=== PATIENT | female | born 1975 | race Caucasian/White ===

== ENCOUNTER → 2016-07-30 | Outpatient (REF) | payer OTHER | LOC: M LAB REF 09:10 | PROVIDERS: ATTEND Physician Assistant | DX: J02.9 Acute pharyngitis, unspecified (principal) ==

== ENCOUNTER → 2018-10-20 | Outpatient (CLI) | payer OTHER ==
[2018-10-20 15:56] LABS: BASO # 0.1 10^3/uL (0.0-0.2); BASO % 0.8 % (0.0-1.0); EOS # 0.1 10^3/uL (0.0-0.50); EOS % 1.6 % (0.0-3.0); HEMOGLOBIN 14.1 g/dl (12.0-15.5); LYMPH # 2.9 10^3/uL (1.5-4.5); LYMPH % 46.6 % (24.0-44.0); MEAN CORPUSCULAR HEMOGLOBIN 30.9 pg (27.0-33.0); MEAN CORPUSCULAR HGB CONC 32.8 g/dl (32.0-36.5); MEAN CORPUSCULAR VOLUME 94.3 fl (80.0-96.0); MONO # 0.5 10^3/uL (0.0-0.8); MONO % 8.1 % (0.0-5.0); NEUTROPHILS # 2.6 10^3/uL (1.8-7.7); NEUTROPHILS % 42.7 % (36.0-66.0); PLATELET COUNT, AUTOMATED 264 10^3/uL (150-450); RED BLOOD COUNT 4.56 10^6/uL (4.00-5.40); WHITE BLOOD COUNT 6.2 10^3/uL (4.0-10.0)
[2018-10-20 16:00] LABS: ALBUMIN 3.8 GM/DL (3.2-5.2); ALT/SGPT 20 U/L (12-78); BILIRUBIN,TOTAL 0.4 MG/DL (0.2-1.0); BLOOD UREA NITROGEN 10 MG/DL (7-18); CALCIUM LEVEL 8.9 MG/DL (8.5-10.1); CARBON DIOXIDE LEVEL 29 MEQ/L (21-32); CHLORIDE LEVEL 103 MEQ/L (98-107); CHOLESTEROL LEVEL 238 MG/DL (<200); CREATININE FOR GFR 0.82 MG/DL (0.55-1.30); GLOMERULAR FILTRATION RATE > 60.0 (>58); GLUCOSE, FASTING 77 MG/DL (70-100); HDL CHOLESTEROL 73 MG/DL (>40); LDL CHOLESTEROL 135 MG/DL (<100); NON-HDL-C 165 MG/DL; POTASSIUM SERUM 3.9 MEQ/L (3.5-5.1); SODIUM LEVEL 138 MEQ/L (136-145); TOTAL PROTEIN 7.3 GM/DL (6.4-8.2); TRIGLYCERIDES LEVEL 150 MG/DL (<150)
[2018-10-20 16:03] LABS: TOTAL 25(OH) VITAMIN D 30.7 NG/ML (30.0-100.0)
== END ==
LOC: M WUC 08:26
PROVIDERS: ATTEND Family Medicine
DX: Z00.00 Encounter for general adult medical examination without abnormal findings (principal); K59.00 Constipation, unspecified; E55.9 Vitamin D deficiency, unspecified

== ENCOUNTER → 2019-04-09 | Outpatient (CLI) | payer OTHER ==
[2019-04-09 09:40] LABS: BASO % 0.5 % (0.0-1.0); EOS # 0.1 10^3/uL (0.0-0.5); EOS % 1.1 % (0.0-3.0); HEMATOCRIT 40.8 % (36.0-47.0); HEMOGLOBIN 13.7 g/dl (12.0-15.5); LYMPH # 2.6 10^3/uL (1.5-5.0); MEAN CORPUSCULAR HEMOGLOBIN 31.4 pg (27.0-33.0); MEAN CORPUSCULAR HGB CONC 33.6 g/dl (32.0-36.5); MEAN CORPUSCULAR VOLUME 93.6 fl (80.0-96.0); MONO # 0.7 10^3/uL (0.0-0.8); MONO % 8.2 % (0.0-5.0); NEUTROPHILS # 5.3 10^3/uL (1.5-8.5); PLATELET COUNT, AUTOMATED 253 10^3/uL (150-450); RED BLOOD COUNT 4.36 10^6/uL (4.00-5.40); WHITE BLOOD COUNT 8.8 10^3/uL (4.0-10.0)
[2019-04-09 10:04] LABS: ALBUMIN 3.8 GM/DL (3.2-5.2); ALT/SGPT 19 U/L (12-78); BILIRUBIN,TOTAL 0.4 MG/DL (0.2-1.0); BLOOD UREA NITROGEN 9 MG/DL (7-18); CALCIUM LEVEL 8.8 MG/DL (8.5-10.1); CARBON DIOXIDE LEVEL 28 MEQ/L (21-32); CHLORIDE LEVEL 107 MEQ/L (98-107); CHOLESTEROL LEVEL 224 MG/DL (<200); CHOLESTEROL RISK RATIO 2.986 (<5); CREATININE FOR GFR 0.74 MG/DL (0.55-1.30); FREE T4 0.98 NG/DL (0.76-1.46); GLOMERULAR FILTRATION RATE > 60.0 (>58); GLUCOSE, FASTING 86 MG/DL (70-100); HDL CHOLESTEROL 75 MG/DL (>40); LDL CHOLESTEROL 129 MG/DL (<100); MAGNESIUM LEVEL 2.3 MG/DL (1.8-2.4); NON-HDL-C 149 MG/DL; POTASSIUM SERUM 4.4 MEQ/L (3.5-5.1); SODIUM LEVEL 140 MEQ/L (136-145); TOTAL PROTEIN 7.4 GM/DL (6.4-8.2); TRIGLYCERIDES LEVEL 100 MG/DL (<150)
[2019-04-09 10:22] LABS: TOTAL 25(OH) VITAMIN D 39.7 NG/ML (30.0-100.0)
== END ==
LOC: M WUC 08:14
PROVIDERS: ATTEND Nurse Practitioner Family
DX: R25.2 Cramp and spasm (principal); Z13.220 Encounter for screening for lipoid disorders

== ENCOUNTER → 2019-05-01 | Outpatient (POV) | payer OTHER ==
[~2019-05-01] VITALS: Ht 162.6 cm; Wt 74.1 kg
[2019-05-01 14:56] VITALS: BP 135/63
--- NOTE | 2019-05-02 12:02 | IRCOV ---
[facility] IR Consult Office Visit IR Consult Office Visit DATE: May 01, 2019 REASON FOR CONSULTATION/CHIEF COMPLAINT: Bilateral leg pain. 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 This can be below the knee or above the knee and happen at random times. It's worse after prolonged standing. It is not related to exercise and is not relieved by rest. Denies leg swelling. Denies rash. Denies fevers or chills. Denies bulging varicose veins. No pelvic pain or pain with menstruation. No fevers or chills. ALLERGIES: Please see below. HOME MEDICATIONS: Please see below. PAST MEDICAL HISTORY: Negative PAST SURGICAL HISTORY: No surgeries in the legs FAMILY HISTORY: Noncontributory. SOCIAL HISTORY: Nonsmoker. No alcohol or drugs. REVIEW OF SYSTEMS: Otherwise negative PHYSICAL EXAMINATION: VITAL SIGNS: Please see below. GENERAL APPEARANCE: Appears well. Comfortable at rest. HEENT: No scleral icterus. RESPIRATORY: Normal breathing at rest. CARDIOVASCULAR: Normal rate. ABDOMEN: Soft nontender. EXTREMITIES: Right lower; skin color normal. No ulcers or gangrene. No atrophy. Skin warm to touch. No skin discoloration, spider veins or hemosiderin deposition. No edema. No pinpoint tenderness. No bulging veins. Femoral pulse 2+ popliteal pulse 2+ DP PT plus Left lower: skin color normal. No ulcers or gangrene. No atrophy. Skin warm to touch. No skin discoloration, spider veins or hemosiderin deposition. No edema. No pinpoint tenderness. No bulging veins. Femoral pulse 2+ popliteal pulse 2+ DP PT plus NEUROLOGICAL: Alert and oriented. PSYCHIATRIC: Appropriate to circumstance. LABORATORY DATA: 04/09/2019 hemoglobin 13.7 hematocrit 40.8 WBC 8.8 platelets 253 sodium 140 potassium 4.4 BUN 9 creatinine 0.7 bilirubin 0.4 AST 11 ALT 19 ALP 69 Imaging: None. ASSESSMENT/PLAN: 43-year-old female with bilateral lower extremity pain. Given pain is worse with prolonged standing, will obtain a venous ultrasound to look for reflux. There is no indication of arterial disease in the legs. Will follow up with the venous reflux study. I spent 30 minutes in consultation with the patient. Thank you for this referral. [facility] Tarah Lobo [employer] VS, I&O, 24H, Fishbone Vital Signs/I&O Vital Signs Date Time Temp Pulse Resp B/P (MAP) Pulse Ox O2 Delivery O2 Flow Rate FiO2 05/01/19 14:56 98.2 88 16 135/63 (87) 97 Room Air JEREMI IZAGUIRRE MD May 02, 2019 12:02
== END ==
LOC: M IRPOV 14:43
PROVIDERS: ATTEND Radiology Diagnostic Radiology
DX: M79.604 Pain in right leg (principal); M79.605 Pain in left leg

== ENCOUNTER → 2019-05-14 | Outpatient (CLI) | payer OTHER ==
--- NOTE | 2019-05-15 03:13 | REP ---
Clinical: Bilateral venous insufficiency . Technique: Whitten scale and color Doppler evaluation of the bilateral lower extremities using linear high frequency transducer. Reflux evaluation performed. Findings: Ultrasound examination of the right and left lower extremity deep venous structures from the common femoral vein to the popliteal vein demonstrates normal compressibility flow and wave patterns in response to respiration and augmentation. There is no evidence for deep venous thrombosis. Right lower extremity demonstrates minimal reflux through the deep system and no reflux through the superficial system. Left lower extremity demonstrates no reflux. Impression: No evidence for deep venous thrombosis. Minimal reflux through the right deep venous system only. Electronically Signed by Javi Chowdhury MD 05/15/2019 03:04 A
--- NOTE | 2019-05-16 10:09 | IRPN ---
[facility] IR Progress Note IR Progress Note DATE: May 14, 2019 No Venous insufficiency. No indication for EVLT. Thank you for this referral JEREMI IZAGUIRRE MD May 16, 2019 10:09
== END ==
LOC: M RAD 07:52
PROVIDERS: ATTEND Radiology Diagnostic Radiology
DX: I87.8 Other specified disorders of veins (principal)

== ENCOUNTER → 2020-11-28 | Outpatient (CLI) | payer OTHER ==
--- NOTE | 2020-11-28 15:46 | REP ---
INDICATION: SCREENING MAMMOGRAM. COMPARISON: Multiple TECHNIQUE: Digital screening mammography was carried out bilaterally in the CC and MLO projections using both 2D and 3D modalities and compared to the prior exams. By history, the patient has no complaints of a palpable breast abnormality or other significant breast complaints. FINDINGS: The breasts are unchanged in size and shape. Once again, scattered dense heterogenous fibroglandular elements are seen bilaterally. In the upper outer quadrant of the right breast there is a potential netta asymmetric density. No other suspicious features are seen in the right breast. In the left breast near the 9 o'clock position there is a potential netta density. Stable benign calcifications are also seen in the left breast. There no suspicious clusters of calcifications. The Volpara volumetric breast density pattern is b. IMPRESSION: BIRADS/ACR category 0 bilateral mammogram. Potential netta density seen in each breast as described above and for which diagnostic digital DBT spot compression views are recommended in the CC and MLO projections. Diagnostic ultrasonography might also be indicated bilaterally. This patient's Tyrer-Cuzick lifetime breast cancer risk assessment score is 12.7%. This mammogram was interpreted with the aid of an FDA-approved computer-aided detection system. The patient states she had a clinical breast exam in over a year. The patient letter being requested is M0. RECOMMENDATION: As above <Electronically signed by Sesar Gauthier > 11/28/20 [id number]
== END ==
LOC: M WHC 14:16
PROVIDERS: ATTEND Nurse Practitioner Women's Health
DX: Z12.31 Encounter for screening mammogram for malignant neoplasm of breast (principal); R92.8 Other abnormal and inconclusive findings on diagnostic imaging of breast

== ENCOUNTER → 2020-12-26 | Outpatient (CLI) | payer OTHER ==
--- NOTE | 2020-12-26 15:48 | REP ---
INDICATION: BILATERAL ADD VIEWS. Screening mammography from 28 November 2020 was BI-RADS category 0 bilaterally. Diagnostic imaging was recommended. COMPARISON: Comparison is also made with November 05, 2019 and November 01, 2018 prior studies. TECHNIQUE: Magnified focal spot-compression CC MLO and true mL views are obtained. 3D tomography is deployed. Spot tomography is utilized. Targeted bilateral breast sonography is performed. FINDINGS: Breast parenchyma is heterogeneously dense in a pattern which may inhibit the sensitivity mammography. Diagnostic images of the left breast demonstrate a low-density well-circumscribed 4-5 mm nodule in the medial aspect of the left breast at approximately 9 o'clock. No other suspicious abnormality is noted on the left mammographically. Diagnostic images of the right breast show no dominant density or mass lesion. The Volpara volumetric breast density pattern is C. Targeted bilateral sonography: Sonographic evaluation of the right breast in the upper outer quadrant demonstrates heterogeneous fibroglandular background echotexture. There is a simple cyst at the 9 o'clock position in the right breast 5.6 cm from nipple measuring 10 x 6 x 9 mm. No suspicious sonographic abnormality is noted on the right. In the left breast scanning is performed in the 9 o'clock position. No sonographic abnormality is seen. No cyst or mass is observed.. IMPRESSION: BIRADS/ACR category 2 benign right breast findings.. BI-RADS category 3 probably benign left breast findings. Well-circumscribed 5 mm nodule in the 9 o'clock positions is visible mammographically. No ultrasound correlate. This patient's [facility] lifetime breast cancer risk assessment score is 12.7%. This mammogram was interpreted with the aid of an FDA-approved computer-aided detection system. The patient states she had a clinical breast exam in over a year ago.. The patient letter being requested is M 3. RECOMMENDATION: Repeat left-sided mammogram recommended in 6 months. Annual screening bilateral study in 1 year. <Electronically signed by Simeon Fine > 12/26/20 [id number]
== END ==
LOC: M WHC 13:42
PROVIDERS: ATTEND Nurse Practitioner Women's Health
DX: N63.22 Unspecified lump in the left breast, upper inner quadrant (principal); N63.24 Unspecified lump in the left breast, lower inner quadrant
CPT/HCPCS: 76642; 77066; G0279

== ENCOUNTER → 2021-02-04 | Outpatient (CLI) | payer OTHER ==
[~2021-02-04] MED LIST: ISOVUE-370 76% 100ML VIAL As Ordered ONE; PROHANCE 279.3MG/ML 15ML VIAL As Ordered ONE
--- NOTE | 2021-02-04 14:59 | REP ---
INDICATION: ABN MAMMO. COMPARISON: Mammogram 11/28/2020, 12/26/2020 as well as other prior exams. Ultrasound 12/26/2020. TECHNIQUE: Three Lisbeth MRI imaging was performed with a dedicated breast coil. Axial, coronal, and sagittal T1 and T2 weighted scans were obtained with and without fat saturation in the usual fashion. The study includes dynamically acquired post gadolinium-enhanced imaging with image subtraction. Maximum intensity projection and multi planar reformation imaging is included as well. This study is interpreted with the aid of SOHM, an FDA approved computer aided detection (CAD) software program, on a dedicated breast MRI workstation. The gadolinium enhancement dose is 14 mL of intravenous ProHance. FINDINGS: There is moderate fibroglandular tissue present bilaterally. A dominant cyst in the upper outer quadrant of the right breast corresponds to the mammographic nodule which was also identified sonographically, maximum diameter is 1 cm. Several subcentimeter cysts are seen in the left breast, the largest is laterally located and measures approximately 1 cm in maximum diameter. No axillary adenopathy is seen. There is mild background parenchymal enhancement. There is no suspicious enhancing mass or morphologic abnormality. IMPRESSION: BI-RADS category 2 benign bilateral breast MRI. Small cysts are seen bilaterally. There is no suspicious enhancing mass or morphologic abnormality. <Electronically signed by Gene Whitten > 02/04/21 [id number]
== END ==
LOC: M RAD 12:26
PROVIDERS: ATTEND Nurse Practitioner Family
DX: R92.8 Other abnormal and inconclusive findings on diagnostic imaging of breast (principal)
CPT/HCPCS: A9576; C8908; Q9967

== ENCOUNTER → 2021-03-18 | Outpatient (REF) | payer OTHER | LOC: M SFHCWAGY 17:25 | PROVIDERS: ATTEND Advanced Practice Midwife | DX: Z12.4 Encounter for screening for malignant neoplasm of cervix (principal) | CPT/HCPCS: 87624; G0123 ==

== ENCOUNTER → 2021-03-18 | Outpatient (CLI) | payer OTHER ==
[2021-03-18 12:51] LABS: BASO % 0.5 % (0.0-1.0); EOS # 0.1 10^3/uL (0.0-0.5); EOS % 0.8 % (0.0-3.0); HEMATOCRIT 41.7 % (36.0-47.0); HEMOGLOBIN 13.8 g/dl (12.0-15.5); LYMPH # 2.9 10^3/uL (1.5-5.0); LYMPH % 44.2 % (24.0-44.0); MEAN CORPUSCULAR HEMOGLOBIN 30.9 pg (27.0-33.0); MEAN CORPUSCULAR HGB CONC 33.1 g/dl (32.0-36.5); MEAN CORPUSCULAR VOLUME 93.5 fl (80.0-96.0); MONO # 0.6 10^3/uL (0.0-0.8); MONO % 8.8 % (2.0-8.0); NEUTROPHILS % 45.5 % (36.0-66.0); PLATELET COUNT, AUTOMATED 238 10^3/uL (150-450); RED BLOOD COUNT 4.46 10^6/uL (4.00-5.40); WHITE BLOOD COUNT 6.6 10^3/uL (4.0-10.0)
[2021-03-18 13:39] LABS: ALBUMIN 3.9 GM/DL (3.2-5.2); ALT/SGPT 18 U/L (12-78); BILIRUBIN,TOTAL 0.5 MG/DL (0.2-1.0); BLOOD UREA NITROGEN 10 MG/DL (7-18); CARBON DIOXIDE LEVEL 27 MEQ/L (21-32); CHLORIDE LEVEL 105 MEQ/L (98-107); CHOLESTEROL LEVEL 272 MG/DL (<200); CHOLESTEROL RISK RATIO 3.443 (<5); CREATININE FOR GFR 0.78 MG/DL (0.55-1.30); FREE T4 0.95 NG/DL (0.76-1.46); GLOMERULAR FILTRATION RATE > 60.0 (>58); GLUCOSE, FASTING 81 MG/DL (70-100); HDL CHOLESTEROL 79 MG/DL (>40); LDL CHOLESTEROL 180 MG/DL (<100); NON-HDL-C 193 MG/DL; POTASSIUM SERUM 4.3 MEQ/L (3.5-5.1); SODIUM LEVEL 138 MEQ/L (136-145); TOTAL 25(OH) VITAMIN D 39.6 NG/ML (30.0-100.0); TOTAL PROTEIN 7.3 GM/DL (6.4-8.2); TRIGLYCERIDES LEVEL 67 MG/DL (<150)
== END ==
LOC: M WUC 09:17
PROVIDERS: ATTEND Nurse Practitioner Family
DX: Z00.00 Encounter for general adult medical examination without abnormal findings (principal)

== ENCOUNTER → 2021-04-20 | Outpatient (CLI) | payer OTHER | LOC: M WHC 07:58 | PROVIDERS: ATTEND Advanced Practice Midwife | DX: R14.0 Abdominal distension (gaseous) (principal); R19.4 Change in bowel habit; N83.292 Other ovarian cyst, left side ==

== ENCOUNTER → 2021-09-28 | Outpatient (CLI) | payer OTHER | LOC: M WHC 14:50 | PROVIDERS: ATTEND Registered Nurse | DX: Z12.31 Encounter for screening mammogram for malignant neoplasm of breast (principal); Z53.9 Procedure and treatment not carried out, unspecified reason ==

== ENCOUNTER → 2022-02-01 | Outpatient (CLI) | payer OTHER | LOC: M WHC 13:28 | PROVIDERS: ATTEND Nurse Practitioner Women's Health | DX: Z12.31 Encounter for screening mammogram for malignant neoplasm of breast (principal) ==

== ENCOUNTER → 2022-08-26 | Outpatient (CLI) | payer OTHER | LOC: M RAD 09:07 | PROVIDERS: ATTEND Physician Assistant Medical | DX: R10.10 Upper abdominal pain, unspecified (principal) ==

== ENCOUNTER 2022-09-24 09:44 | Day surgery (SDC) | payer OTHER ==
[~2022-09-24] VITALS: Ht 162.6 cm; Wt 76.1 kg
[~2022-09-24 09:44] MED LIST changes: -ISOVUE-370 76% 100ML VIAL As Ordered ONE; +NS 1,000 ML IV ONE; -PROHANCE 279.3MG/ML 15ML VIAL As Ordered ONE; +VALA500T5 PO
[2022-09-24] MEDS ORDERED: fentaNYL 100 MCG/2 ML INJECTION As Ordered ONE (11:15)
[2022-09-24] MEDS ORDERED: propofoL 200 MG/20 ML VIAL As Ordered ONE (11:30)
[2022-09-24] MEDS ORDERED: LIDOCAINE 2% 100MG/5ML SDV (FOR ANES.) As Ordered ONE (11:30)
[2022-09-24 12:14] VITALS: BP 128/62
== END 2022-09-24 12:27 | disposition home or self-care (01) ==
LOC: M OPP 09:44
PROVIDERS: ATTEND Internal Medicine Gastroenterology
DX: Z12.11 Encounter for screening for malignant neoplasm of colon (principal); K64.8 Other hemorrhoids; K29.70 Gastritis, unspecified, without bleeding; I10 Essential (primary) hypertension; E78.5 Hyperlipidemia, unspecified; Z79.899 Other long term (current) drug therapy; Z82.49 Family history of ischemic heart disease and other diseases of the circulatory system; Z83.3 Family history of diabetes mellitus
CPT/HCPCS: 43239; 45378; 88305; J3010

== ENCOUNTER → 2022-10-20 | Outpatient (CLI) | payer OTHER ==
[~2022-10-20] MED LIST changes: -NS 1,000 ML IV ONE
== END ==
LOC: M RAD 07:50
PROVIDERS: ATTEND Physician Assistant Medical
DX: R10.10 Upper abdominal pain, unspecified (principal)

== ENCOUNTER → 2023-03-15 | Outpatient (REF) | payer OTHER | LOC: M LAB REF 14:51 | PROVIDERS: ATTEND Surgery | DX: C43.71 Malignant melanoma of right lower limb, including hip (principal) ==

== ENCOUNTER → 2024-07-12 | Outpatient (REF) | payer OTHER | LOC: M PLALAB 14:34 | PROVIDERS: ATTEND Advanced Practice Midwife | DX: Z12.4 Encounter for screening for malignant neoplasm of cervix (principal) | CPT/HCPCS: 87624; G0123 ==

== ENCOUNTER → 2025-01-04 | Outpatient (CLI) | payer OTHER | LOC: M RAD 11:15 | PROVIDERS: ATTEND Nurse Practitioner Family | DX: E07.9 Disorder of thyroid, unspecified (principal) ==

== ENCOUNTER → 2025-02-28 | Outpatient (CLI) | payer OTHER ==
[2025-02-28 15:37] LABS: ESTRADIOL 100.0 PG/ML; PROGESTERONE 0.29 NG/ML
[2025-03-01 10:51] LABS: SEX HORMONE BINDING GLOBULIN 50.0 nmol/L (17-124)
[2025-03-06 16:33] LABS: TESTOSTERONE FREE (DIRECT) 1.4 pg/mL (0.1-6.4); TESTOSTERONE TOTAL FOR T&D 15.0 ng/dL (2-45)
== END ==
LOC: M PLALAB 12:42
PROVIDERS: ATTEND Advanced Practice Midwife
DX: N95.1 Menopausal and female climacteric states (principal); M25.50 Pain in unspecified joint